=== PATIENT | male | born 1965 | race Caucasian/White ===

== ENCOUNTER 2023-04-10 16:29 | Outpatient (CLI) | payer OTHER, SELFPAY ==
[2023-04-10 13:35] LABS: Abs Immature Grans 0.04 10^3/uL (0.0-0.06); Absolute Basophil Count 0.08 10^3/uL (0.0-0.2); Absolute Eosinophil Count 0.69 10^3/uL (0.0-0.7); Absolute Lymphocyte Count 1.29 10^3/uL (1.2-3.4); Absolute Monocyte Count 0.65 10^3/uL (0.1-0.8); Absolute Neutrophil Count 8.34 10^3/uL (1.2-6.7); Basophils % 0.7; Eosinophils % 6.2; HCT 42.2 % (40.0-50.0); HGB 14.4 g/dL (13.5-17.5); Immature Grans % 0.4; Lymphocytes % 11.6; MCH 32.4 pg (27.0-33.0); MCHC 34.1 % (32.0-36.0); MCV 95 fL (80-95); MPV 9.6 fL (8.0-11.0); Monocytes % 5.9; Neutrophils % 75.2; Platelet Count 282 10^3/uL (130-400); RBC 4.45 10^6/uL (4.36-5.78); RDW 12.7 % (11.8-14.1); RDW-SD 44.1 fL; WBC 11.09 10^3/uL (4.4-10.8)
[2023-04-10 13:58] LABS: ALT 26 U/L (16-63); AST 18 U/L (15-37); Albumin 2.6 g/dL (3.4-5.0); Alkaline Phosphatase 88 U/L (46-116); Anion Gap 9.6 mmol/L (3-11); BUN 7 mg/dL (7-18); Bilirubin, Total 0.4 mg/dL (0.2-1.0); CO2 26.4 mmol/L (21.0-32.0); CREATININE 1.1 mg/dL (0.70-1.30); Calcium 9.7 mg/dL (8.5-10.1); Chloride 103 mmol/L (98-107); Estimated GFR 77.81 (mL/min/1.73m2); FREE T4 1.07 ng/dL (0.76-1.46); Glucose 191 mg/dL (74-106); Potassium 3.7 mmol/L (3.5-5.1); Sodium 139 mmol/L (136-145); TSH 2.03 uIU/mL (0.36-3.74); Total Protein 7.2 g/dL (6.4-8.2)
== END 2023-04-10 16:30 | disposition home or self-care (01) ==
LOC: LBO 16:29
PROVIDERS: Visit Provider Nurse Practitioner
DX: C04.9 Malignant neoplasm of floor of mouth, unspecified (principal); Z79.899 Other long term (current) drug therapy
CPT/HCPCS: 36415; 80053; 84439; 84443; 85025

== ENCOUNTER 2023-05-08 09:54 | Outpatient (REF) | payer OTHER, SELFPAY ==
[2023-05-08 12:17] LABS: C Diff PCR Negative (Negative)
== END 2023-05-08 09:55 | disposition home or self-care (01) ==
LOC: LBN 09:54
PROVIDERS: Visit Provider Nurse Practitioner Gerontology
DX: A04.72 Enterocolitis due to Clostridium difficile, not specified as recurrent (principal); C04.9 Malignant neoplasm of floor of mouth, unspecified
CPT/HCPCS: 87493

== ENCOUNTER 2023-05-08 15:34 | Outpatient (CLI) | payer OTHER, SELFPAY ==
[2023-05-08 09:38] LABS: Abs Immature Grans 0.02 10^3/uL (0.0-0.06); Absolute Eosinophil Count 0.69 10^3/uL (0.0-0.7); Absolute Lymphocyte Count 1.32 10^3/uL (1.2-3.4); Absolute Monocyte Count 0.83 10^3/uL (0.1-0.8); Absolute Neutrophil Count 6.42 10^3/uL (1.2-6.7); Basophils % 1.1; Eosinophils % 7.4; HCT 39.7 % (40.0-50.0); HGB 13.2 g/dL (13.5-17.5); Immature Grans % 0.2; Lymphocytes % 14.1; MCH 31.8 pg (27.0-33.0); MCHC 33.2 % (32.0-36.0); MCV 96 fL (80-95); MPV 9.6 fL (8.0-11.0); Monocytes % 8.8; Neutrophils % 68.4; Platelet Count 297 10^3/uL (130-400); RBC 4.15 10^6/uL (4.36-5.78); RDW 15.1 % (11.8-14.1); RDW-SD 51.8 fL; WBC 9.38 10^3/uL (4.4-10.8)
[2023-05-08 10:16] LABS: ALT 27 U/L (16-63); AST 27 U/L (15-37); Albumin 2.8 g/dL (3.4-5.0); Alkaline Phosphatase 110 U/L (46-116); BUN 7 mg/dL (7-18); Bilirubin, Total 0.5 mg/dL (0.2-1.0); CREATININE 1.2 mg/dL (0.70-1.30); Calcium 10.3 mg/dL (8.5-10.1); Chloride 102 mmol/L (98-107); Estimated GFR 69.66 (mL/min/1.73m2); Glucose 144 mg/dL (74-106); Potassium 4.4 mmol/L (3.5-5.1); Sodium 139 mmol/L (136-145); TSH 3.11 uIU/mL (0.36-3.74); Total Protein 7.5 g/dL (6.4-8.2)
== END 2023-05-08 15:35 | disposition home or self-care (01) ==
LOC: LBO 15:35
PROVIDERS: Visit Provider Nurse Practitioner
DX: C04.9 Malignant neoplasm of floor of mouth, unspecified (principal); Z79.899 Other long term (current) drug therapy
CPT/HCPCS: 36415; 80053; 84439; 84443; 85025

== ENCOUNTER 2023-05-16 14:11 | Outpatient (REF) | payer OTHER, SELFPAY ==
[2023-05-16 09:46] LABS: Abs Immature Grans 0.05 10^3/uL (0.0-0.06); Absolute Basophil Count 0.08 10^3/uL (0.0-0.2); Absolute Lymphocyte Count 0.86 10^3/uL (1.2-3.4); Basophils % 0.7; Eosinophils % 11.7; HCT 35.8 % (40.0-50.0); HGB 11.7 g/dL (13.5-17.5); Immature Grans % 0.4; Lymphocytes % 7.2; MCH 32.2 pg (27.0-33.0); MCHC 32.7 % (32.0-36.0); MCV 99 fL (80-95); MPV 9.7 fL (8.0-11.0); Monocytes % 6.4; Neutrophils % 73.6; Platelet Count 336 10^3/uL (130-400); RBC 3.63 10^6/uL (4.36-5.78); RDW 15.7 % (11.8-14.1); RDW-SD 57.2 fL; WBC 11.96 10^3/uL (4.4-10.8)
[2023-05-16 09:47] LABS: Absolute Monocyte Count 0.77 10^3/uL (0.1-0.8)
[2023-05-16 09:55] LABS: ALT 20 U/L (16-63); AST 28 U/L (15-37); Albumin 2.3 g/dL (3.4-5.0); Alkaline Phosphatase 101 U/L (46-116); Anion Gap 8.8 mmol/L (3-11); BUN 12 mg/dL (7-18); Bilirubin, Total 0.4 mg/dL (0.2-1.0); CO2 27.2 mmol/L (21.0-32.0); CREATININE 1.3 mg/dL (0.70-1.30); Calcium 8.1 mg/dL (8.5-10.1); Chloride 102 mmol/L (98-107); Estimated GFR 63.28 (mL/min/1.73m2); Glucose 188 mg/dL (74-106); Magnesium 1.8 mg/dL (1.8-2.4); Potassium 3.9 mmol/L (3.5-5.1); Sodium 138 mmol/L (136-145); Total Protein 7.3 g/dL (6.4-8.2)
== END 2023-05-16 14:12 | disposition home or self-care (01) ==
LOC: LBN 14:11
PROVIDERS: Referring Provider Nurse Practitioner; Visit Provider Nurse Practitioner
DX: C04.9 Malignant neoplasm of floor of mouth, unspecified (principal); Z79.899 Other long term (current) drug therapy
CPT/HCPCS: 80053; 83735; 85025

== ENCOUNTER 2023-05-22 11:24 | Outpatient (CLI) | payer OTHER, SELFPAY ==
[2023-05-22 16:04] LABS: Abs Immature Grans 0.09 10^3/uL (0.0-0.06); Absolute Eosinophil Count 0.96 10^3/uL (0.0-0.7); Absolute Lymphocyte Count 0.89 10^3/uL (1.2-3.4); Absolute Neutrophil Count 12.47 10^3/uL (1.2-6.7); Basophils % 0.6; Eosinophils % 6.1; HGB 11.8 g/dL (13.5-17.5); Immature Grans % 0.6; Lymphocytes % 5.7; MCH 32.9 pg (27.0-33.0); MCHC 33.7 % (32.0-36.0); MCV 98 fL (80-95); MPV 9.5 fL (8.0-11.0); Monocytes % 7.5; Neutrophils % 79.5; Platelet Count 434 10^3/uL (130-400); RBC 3.59 10^6/uL (4.36-5.78); RDW 15.7 % (11.8-14.1); WBC 15.68 10^3/uL (4.4-10.8)
[2023-05-22 16:06] LABS: Absolute Basophil Count 0.09 10^3/uL (0.0-0.2); Absolute Monocyte Count 1.18 10^3/uL (0.1-0.8)
[2023-05-22 16:23] LABS: ALT 31 U/L (16-63); AST 33 U/L (15-37); Albumin 2.5 g/dL (3.4-5.0); Alkaline Phosphatase 97 U/L (46-116); Anion Gap 8.5 mmol/L (3-11); BUN 17 mg/dL (7-18); Bilirubin, Total 0.3 mg/dL (0.2-1.0); CO2 28.5 mmol/L (21.0-32.0); CREATININE 1.1 mg/dL (0.70-1.30); Calcium 8.7 mg/dL (8.5-10.1); Chloride 100 mmol/L (98-107); Estimated GFR 77.33 (mL/min/1.73m2); Glucose 152 mg/dL (74-106); PHOSPHORUS 3.2 mg/dL (2.6-4.7); Potassium 4.1 mmol/L (3.5-5.1); Sodium 137 mmol/L (136-145); Total Protein 7.9 g/dL (6.4-8.2)
== END 2023-05-22 11:25 ==
LOC: LBO 05-24 11:28
PROVIDERS: Visit Provider Nurse Practitioner
DX: C04.9 Malignant neoplasm of floor of mouth, unspecified (principal)
CPT/HCPCS: 36415; 80053; 84100; 85025

== ENCOUNTER 2023-06-05 08:22 | Outpatient (CLI) | payer OTHER, SELFPAY ==
[2023-06-05 13:06] LABS: Abs Immature Grans 0.06 10^3/uL (0.0-0.06); Absolute Basophil Count 0.12 10^3/uL (0.0-0.2); Absolute Lymphocyte Count 1.98 10^3/uL (1.2-3.4); Absolute Monocyte Count 0.92 10^3/uL (0.1-0.8); Basophils % 0.8; HGB 12.3 g/dL (13.5-17.5); Immature Grans % 0.4; Lymphocytes % 13.4; MCH 32.7 pg (27.0-33.0); MCHC 33.2 % (32.0-36.0); MCV 98 fL (80-95); MPV 9.5 fL (8.0-11.0); Monocytes % 6.2; Neutrophils % 77.2; Platelet Count 605 10^3/uL (130-400); RBC 3.76 10^6/uL (4.36-5.78); RDW 15.2 % (11.8-14.1); RDW-SD 54.4 fL; WBC 14.76 10^3/uL (4.4-10.8)
[2023-06-05 13:11] LABS: Absolute Neutrophil Count 11.39 10^3/uL (1.2-6.7)
[2023-06-05 13:32] LABS: ALT 70 U/L (16-63); AST 37 U/L (15-37); Albumin 2.5 g/dL (3.4-5.0); Alkaline Phosphatase 86 U/L (46-116); Anion Gap 12.7 mmol/L (3-11); BUN 29 mg/dL (7-18); Bilirubin, Total 0.4 mg/dL (0.2-1.0); CO2 25.3 mmol/L (21.0-32.0); CREATININE 1.4 mg/dL (0.70-1.30); Calcium 9.2 mg/dL (8.5-10.1); Chloride 101 mmol/L (98-107); FREE T4 1.32 ng/dL (0.76-1.46); Glucose 181 mg/dL (74-106); Potassium 4.2 mmol/L (3.5-5.1); Sodium 139 mmol/L (136-145); Total Protein 8.2 g/dL (6.4-8.2)
[2023-06-06 08:50] LABS: PHOSPHORUS 5.9 mg/dL (2.6-4.7)
== END 2023-06-05 08:23 | disposition home or self-care (01) ==
PROVIDERS: Visit Provider Nurse Practitioner
DX: C04.9 Malignant neoplasm of floor of mouth, unspecified (principal); Z79.899 Other long term (current) drug therapy
CPT/HCPCS: 36415; 80053; 84100; 84439; 84443; 85025

== ENCOUNTER 2023-06-19 13:38 | Outpatient (CLI) | payer OTHER, SELFPAY ==
[2023-06-19 13:18] LABS: Abs Immature Grans 0.06 10^3/uL (0.0-0.06); Absolute Basophil Count 0.05 10^3/uL (0.0-0.2); Absolute Lymphocyte Count 0.38 10^3/uL (1.2-3.4); Absolute Monocyte Count 0.66 10^3/uL (0.1-0.8); Absolute Neutrophil Count 11.41 10^3/uL (1.2-6.7); Basophils % 0.4; Eosinophils % 0.8; HCT 33.4 % (40.0-50.0); HGB 10.9 g/dL (13.5-17.5); Immature Grans % 0.5; MCH 32.6 pg (27.0-33.0); MCHC 32.6 % (32.0-36.0); MCV 100 fL (80-95); Monocytes % 5.2; Neutrophils % 90.1; Platelet Count 337 10^3/uL (130-400); RBC 3.34 10^6/uL (4.36-5.78); RDW 14.2 % (11.8-14.1); RDW-SD 51.9 fL; WBC 12.66 10^3/uL (4.4-10.8)
[2023-06-19 14:17] LABS: ALT 46 U/L (16-63); AST 22 U/L (15-37); Albumin 2.3 g/dL (3.4-5.0); Alkaline Phosphatase 92 U/L (46-116); Anion Gap 12.9 mmol/L (3-11); BUN 19 mg/dL (7-18); Bilirubin, Total 0.3 mg/dL (0.2-1.0); CO2 25.1 mmol/L (21.0-32.0); CREATININE 1.2 mg/dL (0.70-1.30); Calcium 9.1 mg/dL (8.5-10.1); Chloride 96 mmol/L (98-107); Estimated GFR 69.66 (mL/min/1.73m2); FREE T4 1.01 ng/dL (0.76-1.46); Glucose 212 mg/dL (74-106); PHOSPHORUS 4.6 mg/dL (2.6-4.7); Potassium 4.2 mmol/L (3.5-5.1); Sodium 134 mmol/L (136-145); TSH 2.26 uIU/Ml (0.36-3.74); Total Protein 7.9 g/dL (6.4-8.2)
== END 2023-06-19 13:39 | disposition home or self-care (01) ==
LOC: LBO 13:38
PROVIDERS: Visit Provider Nurse Practitioner
DX: C04.9 Malignant neoplasm of floor of mouth, unspecified (principal); Z79.899 Other long term (current) drug therapy
CPT/HCPCS: 36415; 80053; 84100; 84439; 84443; 85025

== ENCOUNTER 2023-07-14 12:42 | Outpatient (CLI) | payer OTHER, SELFPAY ==
[2023-07-14 12:52] LABS: Abs Immature Grans 0.12 10^3/uL (0.0-0.06); Absolute Basophil Count 0.04 10^3/uL (0.0-0.2); Absolute Eosinophil Count 0.02 10^3/uL (0.0-0.7); Absolute Neutrophil Count 18.35 10^3/uL (1.2-6.7); Basophils % 0.2; Eosinophils % 0.1; HCT 35.5 % (40.0-50.0); HGB 11.7 g/dL (13.5-17.5); Immature Grans % 0.6; Lymphocytes % 3.5; MCH 32.4 pg (27.0-33.0); MCV 98 fL (80-95); MPV 9.3 fL (8.0-11.0); Monocytes % 4.9; Neutrophils % 90.7; Platelet Count 390 10^3/uL (130-400); RBC 3.61 10^6/uL (4.36-5.78); RDW 13.8 % (11.8-14.1); RDW-SD 49.5 fL; WBC 20.23 10^3/uL (4.4-10.8)
[2023-07-14 12:57] LABS: Absolute Lymphocyte Count 0.71 10^3/uL (1.2-3.4); Absolute Monocyte Count 0.99 10^3/uL (0.1-0.8)
[2023-07-14 13:15] LABS: ALT 36 U/L (16-63); AST 19 U/L (15-37); Albumin 2.4 g/dL (3.4-5.0); Alkaline Phosphatase 78 U/L (46-116); Anion Gap 8.5 mmol/L (3-11); BUN 23 mg/dL (7-18); Bilirubin, Total 0.2 mg/dL (0.2-1.0); CO2 29.5 mmol/L (21.0-32.0); Calcium 8.6 mg/dL (8.5-10.1); Chloride 99 mmol/L (98-107); FREE T4 1.08 ng/dL (0.76-1.46); Glucose 181 mg/dL (74-106); Potassium 4.8 mmol/L (3.5-5.1); Sodium 137 mmol/L (136-145); Total Protein 7.7 g/dL (6.4-8.2)
== END 2023-07-14 12:43 | disposition home or self-care (01) ==
LOC: LBO 12:43
PROVIDERS: PCP Family Medicine; Visit Provider Nurse Practitioner
DX: C04.9 Malignant neoplasm of floor of mouth, unspecified (principal); Z79.899 Other long term (current) drug therapy
CPT/HCPCS: 36415; 80053; 84100; 84439; 84443; 85025

== ENCOUNTER 2023-07-31 15:52 | Outpatient (REF) | payer OTHER, SELFPAY ==
[2023-07-31 16:08] LABS: Abs Immature Grans 0.16 10^3/uL (0.0-0.06); Absolute Basophil Count 0.04 10^3/uL (0.0-0.2); Absolute Eosinophil Count 0.18 10^3/uL (0.0-0.7); Absolute Lymphocyte Count 0.73 10^3/uL (1.2-3.4); Absolute Monocyte Count 1.22 10^3/uL (0.1-0.8); Absolute Neutrophil Count 19.82 10^3/uL (1.2-6.7); Basophils % 0.2 %; Eosinophils % 0.8 %; HCT 36.9 % (40.0-50.0); HGB 12.3 g/dL (13.5-17.5); Immature Grans % 0.7 %; Lymphocytes % 3.3 %; MCH 32.5 pg (27.0-33.0); MCHC 33.3 % (32.0-36.0); MCV 98 fL (80-95); MPV 10.3 fL (8.0-11.0); Monocytes % 5.5 %; Neutrophils % 89.5 %; Platelet Count 372 10^3/uL (130-400); RBC 3.78 10^6/uL (4.36-5.78); RDW-SD 50.7 fL; WBC 22.14 10^3/uL (4.4-10.8)
[2023-07-31 16:17] LABS: ALT 36 U/L (16-63); AST 23 U/L (15-37); Albumin 2.3 g/dL (3.4-5.0); Alkaline Phosphatase 101 U/L (46-116); Anion Gap 9.1 mmol/L (3-11); BUN 26 mg/dL (7-18); Bilirubin, Total 0.2 mg/dL (0.2-1.0); CO2 28.9 mmol/L (21.0-32.0); Chloride 98 mmol/L (98-107); Glucose 131 mg/dL (74-106); Potassium 4.3 mmol/L (3.5-5.1); Sodium 136 mmol/L (136-145); Total Protein 7.5 g/dL (6.4-8.2)
== END 2023-07-31 15:53 | disposition home or self-care (01) ==
LOC: LBN 15:52
PROVIDERS: PCP Family Medicine; Visit Provider Nurse Practitioner
DX: C04.9 Malignant neoplasm of floor of mouth, unspecified (principal)
CPT/HCPCS: 80053; 85025